=== PATIENT | female | born 1970 | race Caucasian/White ===

== ENCOUNTER → 2023-08-27 17:45 | Outpatient (REF) | payer OTHER, SELFPAY | LOC: RAD 17:45 | PROVIDERS: ATTENDING PHYSICIAN Nurse Practitioner | DX: M25.511 Pain in right shoulder (principal) | CPT/HCPCS: 73030 ==

== ENCOUNTER 2023-11-11 20:30 | Emergency (ER) | payer OTHER, SELFPAY ==
[2023-11-11 20:33] VITALS: BP 144/78
--- NOTE | 2023-11-11 21:31 | ED.GENMED ---
History of Present Illness
General
Chief Complaint: Skin Surface Trauma
Source: patient
Exam Limitations: none
Time Seen by Provider: 11/11/23 21:00
Nursing documentation reviewed up to this point in time: agreed with
History of Present Illness
History of Present Illness:
53 y/o F R hand dominant
right index fingertip laceration when she was washin ga knife tonight
tetanus utd
was bleeding but controlled until she flexes the finger then it opens and bleeds again
pt has no nubness/tingling/weakness
Past History
Past History
ED Past Medical History: None
ED Past Surgical History:
Social History
Tobacco: Non-smoker
Review of Systems
Review of Systems
Allergies reviewed?: Yes
All Other Systems: Not applicable
Phy Exam
Physical Exam
Physical Exam:
GENERAL: Alert , in no apparent distress
CV: 2+ RADIAL PULSE, CAP REFILL INTACT
NEUROLOGICAL: Alert and oriented, no focal neuro deficits
SKIN: Warm and dry,
1 CM LACERATION DISTAL RIGHT INDEX FINGER DISTAL PHALAX CLOSED, DOESN'T OPEN WITH FLEXION
MUSCULOSKELETAL: No edema, well perfused.
FULL FINGER ROM
PSYCH: Normal and appropriate interaction.
Course
Vital Signs
Initial and Last Documented VS:
Initial Vital Signs
Temp Pulse Resp BP Pulse Ox
98.3 F 83 16 144/78 99
11/11/23 20:33 11/11/23 20:33 11/11/23 20:33 11/11/23 20:33 11/11/23 20:33
Last Documented Vital Signs
Temp Pulse Resp BP Pulse Ox
98.3 F 83 16 144/78 99
11/11/23 20:33 11/11/23 20:33 11/11/23 20:33 11/11/23 20:33 11/11/23 20:33
MDM/Problems Addressed
Differential Diagnosis Includes:
laceration, abrasion
MDM/Problems Addressed:
53 y/o F
right finger laceration
already starting to close
no opening with flexin joleen the DIP joint
no bleeding
reinforced with glue and sterristrip
teatnus utd
*Critical Care Note
Total Time (30-74mins, 75-104mins- exclusive of procedures): Not Applicable
ED Attending Note
-
Portions of this chart may have been created with voice recognition software.� Occasional wrong word or��sound alike� substitutions may have occurred due to the inherent limitations of voice recognition software.
Discharge Plan
Departure
Patient Disposition: Home (Routine Discharge)
Date of Disposition: 11/11/23
Time of Disposition: 21:29
Patient with high blood pressure during this ER visit?: No
Condition: Fair
Covid-19: Not Applicable
Discharge Problem:
Laceration of finger
Instructions: Laceration Repair With Glue (DC)
Referrals:
Haleigh Sandy MD [Family Provider] - Follow up in 2-3 days
Activity Restrictions/Additional Instructions:
KEEP THE WOUND CLEAN AND DRY FOR 48 HORUS IF POSSIBLE
AFTER AROLDO TYOU CAN TAKE THE BANDAID OFF AND GET IT WET
THE STERRISTRIPS WILL PEEL UP AND FALL OFF (AND THE GLUE WILL DISSOLVE)
RETURN FOR ANY CONCERNS.
Interventions
Interventions:
*Risk Screen - Suicide Last Done: 11/11/23 20:33
*General Assessment Last Done: 11/11/23 20:33
*Neglect/Abuse Screening Last Done: 11/11/23 20:33
*Nursing Disposition Last Done: 11/11/23 21:35
ED-Skin Assessment Last Done: 11/11/23 21:15
Discharge Date and Time
Discharge Date/Time: 11/11/23 21:35
Print Language: MONGOLIAN
== END 2023-11-11 21:35 | disposition home or self-care (01) ==
LOC: EMR 20:30
PROVIDERS: EMERGENCY PHYSICIAN Emergency Medicine; FAMILY PHYSICIAN Internal Medicine
DX: S61.210A Laceration without foreign body of right index finger without damage to nail, initial encounter (principal); W26.0XXA Contact with knife, initial encounter
CPT/HCPCS: 99282; 12001